=== PATIENT | female | born 1990 | race Caucasian/White ===

== ENCOUNTER → 2020-11-07 | Outpatient (CLI) | payer BC ==
[~2020-11-07] MED LIST: ARIP10 PO; Bactrim Ds Tab1 EACH PO; CEPH500 PO; DOCU100 PO; ERYT.5TO RIGHTEYE; HYDACE5 PO; HYDACE5325 PO; IBUP800 PO; MULVITMINE PO; NITR100CA PO; Norco 5-325 Ta1 EACH PO; ONDA4ODT MM; OXYACE5T PO; PRENATA CHEWAB1 EACH PO; PROM25 PO; SERT100 PO; Zofran Odt4 MG SL
[2020-11-08 10:00] LABS: Candida species (DNA Probe) Negative (NEGATIVE); G. vaginalis (DNA Probe) Negative (NEGATIVE); T. vaginalis (DNA Probe) Negative (NEGATIVE)
[2020-11-09 01:07] LABS: CHLAMYDIA TRACHOMATIS, NAA Negative (Negative); HPV 16 Negative (Negative); HPV 18 Negative (Negative); HPV OTHER HR TYPES Negative (Negative)
== END | disposition home or self-care (01) ==
LOC: LAB SHORT 10:48 → LAB 10:48
PROVIDERS: Advanced Practice Midwife
DX: Z11.3 Encounter for screening for infections with a predominantly sexual mode of transmission (principal); N92.6 Irregular menstruation, unspecified; N76.0 Acute vaginitis
CPT/HCPCS: 87480; 87491; 87510; 87591; 87624; 87660; G0123

== ENCOUNTER 2022-04-17 10:33 | Day surgery (SDC) | payer BC ==
[~2022-04-17] VITALS: Ht 172.7 cm; Wt 111.0 kg
[2022-04-17] MEDS ORDERED: MONT10T (11:39)
[2022-04-17] MEDS ORDERED: FLUT1DIS5 (11:39)
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
== END 2022-04-17 14:08 | disposition home or self-care (01) ==
LOC: ORSCSDS 10:33
PROVIDERS: Obstetrics & Gynecology
PROC: 0DNW4ZZ Release Peritoneum, Percutaneous Endoscopic Approach (ICD-10-PCS; principal; 2022-04-17 12:00)
DX: N80.9 Endometriosis, unspecified (principal); R10.2 Pelvic and perineal pain; J45.909 Unspecified asthma, uncomplicated; Z86.16 Personal history of COVID-19; F31.9 Bipolar disorder, unspecified; E66.9 Obesity, unspecified; Z68.37 Body mass index [BMI] 37.0-37.9, adult
CPT/HCPCS: 36415; 86850; 86900; 86901; J1100; J1885; J2250; J2405; J2704; J2795; J3010; J7120

== ENCOUNTER 2022-12-29 06:23 | Day surgery (SDC) | payer BC ==
[2022-12-29] VITALS (11 sets, daily range): BP systolic 118–149; BP diastolic 69–96
[~2022-12-29] VITALS: Ht 172.7 cm; Wt 103.7 kg
[~2022-12-29 06:23] MED LIST changes: +BUPR100 PO; +FLUT1DIS5; +MONT10T PO; +SUMA25 PO
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
--- NOTE | 2022-12-29 14:36 | NUR ---
DENIES ANY NEED FOR PAIN MEDS AT THIS TIME, REPORTS HAVING ADEQUATE PAIN CONTROL WITH PO PAIN MEDS AND TORADOL, TOLERATED REGULAR DIET WELL, AMBULATED DOWN THE HALLS AND TOLERATED WELL, PT DC'D HOME, DC ORDERS GIVEN, VERBALIZED UNDERSTANDING.
== END 2022-12-29 14:41 | disposition home or self-care (01) ==
LOC: ORSCMMR 06:23 → ORD 07:30 → SURS 10:30 → ORSCMMR 14:41
PROVIDERS: Obstetrics & Gynecology
PROC: 8E0W4CZ Robotic Assisted Procedure of Trunk Region, Percutaneous Endoscopic Approach (ICD-10-PCS; principal; 2022-12-29 07:30)
PROC: 0UT94ZZ Resection of Uterus, Percutaneous Endoscopic Approach (ICD-10-PCS; principal; 2022-12-29 07:30)
DX: N80.322 Deep endometriosis of the posterior cul-de-sac (principal); N99.4 Postprocedural pelvic peritoneal adhesions; F31.9 Bipolar disorder, unspecified; J45.909 Unspecified asthma, uncomplicated; E66.9 Obesity, unspecified; Z68.34 Body mass index [BMI] 34.0-34.9, adult; Z79.899 Other long term (current) drug therapy
CPT/HCPCS: 86850; 86900; 86901; 88307; A9270; J0690; J1100; J1170; J1885; J2250; J2405; J2704; J3010; J7120

== ENCOUNTER → 2023-02-10 | Outpatient (CLI) | payer BC ==
[2023-02-11 12:34] LABS: Candida species (DNA Probe) Negative (NEGATIVE); G. vaginalis (DNA Probe) Positive (NEGATIVE); T. vaginalis (DNA Probe) Negative (NEGATIVE)
== END ==
LOC: LAB SHORT 12:16 → LAB 12:16
PROVIDERS: Obstetrics & Gynecology
DX: N89.8 Other specified noninflammatory disorders of vagina (principal)
CPT/HCPCS: 87480; 87510; 87660

== ENCOUNTER → 2023-06-08 | Outpatient (CLI) | payer BC ==
[2023-06-09 11:41] LABS: Bacterial Vaginosis PCR Negative (NEGATIVE); Candida Group, PCR NOT DETECTED (NOT DETECT); Candida glabrata-krusei, PCR NOT DETECTED (NOT DETECT)
== END ==
LOC: LAB SHORT 16:28 → LAB 16:28
PROVIDERS: Family Medicine
DX: B37.31 Acute candidiasis of vulva and vagina (principal)
CPT/HCPCS: 87481; 87661; 87801

== ENCOUNTER → 2024-02-16 | Outpatient (CLI) | payer BC ==
[2024-02-16 16:12] LABS: Bacterial Vaginosis PCR Negative (NEGATIVE); Candida glabrata-krusei, PCR NOT DETECTED (NOT DETECT)
[2024-02-16 16:14] LABS: Candida Group, PCR DETECTED (NOT DETECT)
== END ==
LOC: LAB SHORT 12:16 → LAB 12:16
PROVIDERS: Obstetrics & Gynecology
DX: N89.8 Other specified noninflammatory disorders of vagina (principal)
CPT/HCPCS: 87481; 87661; 87801